=== PATIENT | female | born 1975 | race Hispanic/Latino ===

== ENCOUNTER → 2019-05-24 | Outpatient (CLI) | payer OTHER ==
--- NOTE | 2019-05-24 15:52 | REP ---
ULTRASOUND RIGHT BREAST: Real-time sonographic evaluation of the right breast performed in the inframammary crease in the region of 5 o'clock at the site of a palpable lump. Reportedly this lump has diminished in size after treatment with antibiotics. In that region there is a superficial ill-defined hypoechoic area measuring 6 x 4 x 6 mm. This appears to at least partially be located in the dermis. I suspect this represents residual inflammatory change from an inflammatory process. No other adjacent sonographic abnormality is seen in the right breast. IMPRESSION: ACR 3 probably benign. At the site of the palpable lump in the right breast, at the inframammary fold, is a superficial ill-defined hypoechoic area 6 mm in maximum diameter, at least partially within the dermis. Reportedly this palpable lump has decreased in size after antibiotic therapy. This probably represents residual inflammation. I would recommend followup ultrasound in 6 months. However, if there is no clinical impression of resolving inflammatory change at that location then ultrasound guided biopsy should be performed. Electronically Signed by Timi Crenshaw MD 05/24/2019 06:24 P
== END ==
LOC: M RAD 13:11
PROVIDERS: ATTEND Family Medicine
DX: N63.0 Unspecified lump in unspecified breast (principal)

== ENCOUNTER → 2021-03-08 | Outpatient (CLI) | payer OTHER ==
--- NOTE | 2021-03-08 16:06 | REPMRS ---
Patient History No known family history of cancer. Tomosynthesis is performed. Volpara breast density is b. [facility] lifetime risk of breast cancer 9.8%. Covid vaccines 07/2020 left arm. 07/2020 left arm. Booster 02/15/21 right arm. Patient states no breast complaints today. Patient has signed MRS History Sheet. Digital Woman Screen Mammo: March 08, 2021 - Exam #: [id number] Bilateral CC and MLO view(s) were taken. Technologist: RT Karen Prior study comparison: January 23, 2019, bilateral digital woman screen mammo, performed at [facility]. March 28, 2017, bilateral digital woman screen mammo, performed at [facility]. FINDINGS: The breast tissue is heterogeneously dense. This may lower the sensitivity of mammography. There has been no change in the appearance of the mammogram from the prior studies. There is a moderate amount of residual fibroglandular tissue which is fairly symmetric. There is no interval development of dominant mass, areas of architectural distortion, or clustered microcalcification typical of malignancy. Assessment: BI-RADS/ACR category 1 mammogram. Negative Mammogram. Recommendation Routine screening mammogram in 1 year (for women over age 40). This mammogram was interpreted with the aid of an FDA-approved computer-aided dectection system. Electronically Signed By: Timi Crenshaw MD 03/08/21 0722
== END ==
LOC: M WHC 15:09
PROVIDERS: ATTEND Family Medicine
DX: Z12.31 Encounter for screening mammogram for malignant neoplasm of breast (principal)